=== PATIENT | female | born 1985 | race Caucasian/White ===

== ENCOUNTER 2017-06-05 16:30 | Emergency (ER) | payer BC, OTHER ==
[2017-06-05 17:15] VITALS: BP 111/63; PULSE 82; TEMP 98.1; BMI 29.8
[2017-06-05] MEDS ORDERED: ACETAMINOPHEN 325 MG TABLET (FP) PO ONE (18:12)
[2017-06-05] MEDS ORDERED: ACETAMINOPHEN 325 MG TABLET (FP) ONE (18:12)
--- NOTE | 2017-06-05 18:19 | PDOC ---
History of Present Illness - General Chief Complaint: Cold Symptoms Stated Complaint: FATIGUE Time Seen by Provider: 06/05/17 17:40 History Source: Patient Exam Limitations: No Limitations - History of Present Illness Initial Comments: CHIEF COMPLAINT: 31 y/o afebrile female c/o fever, chills, body aches, dry cough and sore throat x 3 days. HISTORY OF PRESENT ILLNESS: The patient never actually took a temp but states she started sweating and then was cold. She has been taking dayquil and nyquil for her symptoms. Her daughter had similar symptoms earlier in the week. Past History - Past Medical History Allergies/Adverse Reactions: Allergies Allergy/AdvReac Type Severity Reaction Status Date / Time codeine [Codeine] Allergy Intermediate Hives Verified 02/23/16 09:39 Penicillins Allergy Verified 02/23/16 09:39 Home Medications: Ambulatory Orders Levothyroxine [Synthroid -] 150 mcg PO DAILY 07/04/13 Albuterol Sulfate Inhaler - [Ventolin HFA Inhaler -] 1 - 2 inh PO Q4H #1 inhaler 06/05/17 Hydroxychloroquine So4 [Plaquenil -] 200 mg PO DAILY 06/05/17 Thyroid Disease: Yes - Reproductive History (#): 2 Para: 0 Therapeutic (s) & number: Yes (1) - Immunization History Immunization Up to Date: Yes - Suicide/Smoking/Psychosocial Hx Smoking Status: Yes Smoking History: Former smoker Have you smoked in the past 12 months: No Number of Cigarettes Smoked Daily: 0 If you are a former smoker, when did you quit?: 1997 Information on smoking cessation initiated: No Hx Alcohol Use: No Drug/Substance Use Hx: No Substance Use Type: None Review of Systems - Review of Systems Able to Perform ROS?: Yes Constitutional: Yes: Chills, Fever, Other (body aches) HEENTM: Yes: Nose Congestion, Throat Pain. No: Ear Pain, Ear Discharge, Nose Bleeding, Throat Swelling, Difficulty Swallowing Respiratory: Yes: Cough. No: Shortness of Breath, Wheezing, Productive cough Cardiac (ROS): No: Symptoms Reported ABD/GI: No: Symptoms Reported Neurological: No: Symptoms reported *Physical Exam - Vital Signs Last Vital Signs Temp Pulse Resp BP Pulse Ox 98.1 F 82 20 111/63 98 06/05/17 17:12 06/05/17 17:12 06/05/17 17:12 06/05/17 17:12 06/05/17 17:12 - Physical Exam Comments: Patient is a non toxic but ill appearing female in NAD or obvious discomfort. General Appearance: Yes: Nourished, Appropriately Dressed. No: Apparent Distress HEENT: positive: EOMI, DAWOOD, Pharyngeal Erythema (mild), Nasal Congestion. negative: Tonsillar Exudate, Tonsillar Erythema, Rhinorrhea, TM Bulging, TM Dull , TM Erythema Neck: negative: Lymphadenopathy (R), Lymphadenopathy (L) Respiratory/Chest: positive: Lungs Clear, Normal Breath Sounds. negative: Respiratory Distress, Accessory Muscle Use, Wheezing Cardiovascular: positive: Regular Rhythm, Regular Rate Medical Decision Making - Medical Decision Making A/P: 31 y/o female with URI/bronchitis. Will discharge to home with albuterol inhaler (she states she's had to use in the past) and supportive care instructions. gave patient tylenol in the ER. Suggested she return to the ER with any worsening or concerning symptoms. The patient verbalizes understanding of all instructions, has no further questions and is awaiting discharge. *DC/Admit/Observation/Transfer Diagnosis at time of Disposition: Acute viral bronchitis Upper respiratory infection Qualifiers: URI type: unspecified URI Qualified Code(s): J06.9 - Acute upper respiratory infection, unspecified - Discharge Dispostion Disposition: HOME Condition at time of disposition: Good - Prescriptions Prescriptions: Albuterol Sulfate Inhaler - [Ventolin HFA Inhaler -] 1 - 2 inh PO Q4H #1 inhaler - Referrals Referrals: Jj Macias [Primary Care Provider] - (call wednesday) - Patient Instructions Printed Discharge Instructions: DI for Acute Bronchitis, DI for Viral Upper Respiratory Infection -- Adult Additional Instructions: Discharge Instructions: -A prescription for an albuterol inhaler has been sent to your pharmacy -Please take tylenol and motrin for fever/body aches -IF you are taking tylenol, DO NOT TAKE dayquil and nyquil -Drink plenty of fluids -Get lots of rest -Return to the ER with any worsening or concerning symptoms. - Post Discharge Activity Forms/Work/School Notes: Back to Work
== END 2017-06-05 18:28 | disposition home or self-care (01) ==
LOC: JERFT 16:30
DX: J20.9 Acute bronchitis, unspecified (principal)
CPT/HCPCS: 99281-25

== ENCOUNTER 2018-11-27 09:37 | Emergency (ER) | payer BC, OTHER ==
[2018-11-27 09:43] VITALS: BMI 23.6
[2018-11-27] MEDS ORDERED: SODIUM CHLORIDE 1,000 ML IV STA (10:39)
[2018-11-27] MEDS ORDERED: predniSONE 20 MG TABLET (UD) PO ONE (10:40)
[2018-11-27] MEDS ORDERED: KETOROLAC TROMETHAMINE 15 MG/ML VIAL IVPUSH ONE (10:40)
[2018-11-27] MEDS ORDERED: predniSONE 10 MG TABLET (UD) ONE (11:33)
[2018-11-27] MEDS ORDERED: KETOROLAC TROMETHAMINE 15 MG/ML VIAL ONE (11:33)
[2018-11-27] MEDS ORDERED: predniSONE 20 MG TABLET (UD) ONE (11:33)
--- NOTE | 2018-11-27 11:40 | PDOC ---
Documentation entered by Ignacia Horton SCRIBE, acting as scribe for Ayanna De Paz MD. Ayanna De Paz MD: This documentation has been prepared by the Sol campbell Mackenzie, SCRIBE, under my direction and personally reviewed by me in its entirety. I confirm that the documentation accurately reflects all work , treatment, procedures, and medical decision making performed by me. History of Present Illness - General Chief Complaint: Palpitations Stated Complaint: PALPITATIONS / LUPUS Time Seen by Provider: 11/27/18 09:58 History Source: Patient Exam Limitations: No Limitations - History of Present Illness Initial Comments: The patient is a 33 year old female with a significant PMH of mixed connective tissue disease and Raynaud's disease who presents to the ED with 2 days of intermittent palpitations, generalized malaise and body aches/joint aches and her concern for a mixed connective tissue disease flare up. Patient states that 2 nights ago she started having palpitations and symptoms of a "flare up" (skin hurting, general malaise, nausea, and diarrhea). Patient states being unable to get out of bed and notes she has not eaten or drank much in the past 2 days. Patient states her "flare ups" are normally triggered by stress and she endorses being under some additional stress lately. Patient notes a specific pain centralized in her left shoulder. Patient also notes feeling short of breath which is usually not a symptom of her flare ups. Patient endorses taking aspirin and Motrin however she has experienced little to no relief. Patient notes she has been prescribed prednisone for previous flare ups. Car Supplier: Dr. Lanza ([facility]) Allergies: None Past Medical History: as documented in EMR/HPI Social history: Lives with family. No tobacco, ETOH or drug use. Surgical history: Meds: as documented in EMR 11/27/18 11:01 11/27/18 11:39 Past History - Past Medical History Allergies/Adverse Reactions: Allergies Allergy/AdvReac Type Severity Reaction Status Date / Time codeine [Codeine] Allergy Intermediate Hives Verified 11/27/18 09:43 Penicillins Allergy Verified 11/27/18 09:43 Home Medications: Ambulatory Orders Levothyroxine [Synthroid -] 125 mcg PO DAILY 07/04/13 Hydroxychloroquine So4 [Plaquenil -] 200 mg PO DAILY 06/05/17 Prednisone [Prednisone 50 MG TABLETS] 50 mg PO DAILY #4 tablet 11/27/18 COPD: No Thyroid Disease: Yes Other medical history: lupus, connective tissue disease - Reproductive History (#): 2 Para: 0 Therapeutic (s) & number: Yes (1) - Immunization History Immunization Up to Date: Yes - Suicide/Smoking/Psychosocial Hx Smoking Status: Yes Smoking History: Never smoked Have you smoked in the past 12 months: No Number of Cigarettes Smoked Daily: 0 If you are a former smoker, when did you quit?: 1997 Hx Alcohol Use: No Drug/Substance Use Hx: No Substance Use Type: None Review of Systems - Review of Systems Comments:: Constitutional: no fevers or chills. HEENT: no headache or dizziness. No congestion. No visual/hearing disturbances. CVS: (+)Palpitations. No cp or syncope. Resp:(+)SOB. No cough. Gastrointestinal: (+)Nausea, diarrhea. No vomiting. Genitourinary: no urinary sx, hematuria. MUSCULOSKELETAL: (+)General Malaise. (+)Left shoulder pain. SKIN: (+)Increased sensitivity. (+)Pain upon touch. No redness or skin changes, no discharge, no rash. No wounds. Hematologic: no easy bruising/bleeding. NEUROLOGIC: No headache, dizziness, LOC or altered mental status. No numbness or tingling. Psych:(+)Stress. no anxiety or depression Allergic/Immunologic: no allergies All other systems reviewed and negative, or as documented in HPI. 11/27/18 11:02 *Physical Exam - Vital Signs Last Vital Signs Temp Pulse Resp BP Pulse Ox 98.8 F 75 18 109/67 99 11/27/18 09:40 11/27/18 09:40 11/27/18 09:40 11/27/18 09:40 11/27/18 09:40 - Physical Exam Comments: General: Well appearing, awake and alert, NAD. HEENT: NCAT, PERRL, EOMI, clear conjunctiva, anicteric, moist mucus membranes, clear oropharynx, no oral lesions.. Neck: neck supple, FROM Resp: CTAB, normal and even respirations, no respiratory distress CVS: RRR, no murmurs, 2+ peripheral pulses throughout, no peripheral edema Abdomen: soft, NTND, no rebound or guarding. No CVAT. Back: nontender, normal inspection and ROM MSK: no edema, SARAVIA x4, ROM intact. No clubbing or cyanosis. normal bulk and tone. Extremities: no calf tenderness Neuro: alert, oriented appropriately; no focal neurologic deficits Skin: warm and well perfused, cap refill <2 sec, normal color 11/27/18 11:05 Heart Score/ECG Review #1 ECG reviewed & interpreted by me at: 10:25 General ECG Interpretation: Sinus Rhythm, Normal Rate, Normal Intervals Compared to previous ECG there are: Previous ECG unavail 11/27/18 13:46 EKG normal sinus rhythm at 64 bpm, no interval abnormalities, narrow QRS, ST and T wave segments and morphology normal. Nonspecific T wave abnormalities ED Treatment Course - LABORATORY CBC & Chemistry Diagram: 11/27/18 11:45 11/27/18 10:39 - RADIOLOGY Radiology Studies Ordered: Category Date Time Status CHEST PA & LAT [RAD] Stat Radiology 11/27/18 10:39 Ordered Medical Decision Making - Medical Decision Making 11/27/18 12:52 See HPI for details. Prior notes reviewed, including admissions, discharges and consultations. Vital signs reviewed, wnl. Vital Signs Temp Pulse Resp BP Pulse Ox 98.8 F 75 18 109/67 99 11/27/18 09:40 11/27/18 09:40 11/27/18 09:40 11/27/18 09:40 11/27/18 09:40 DDX chest pain, arrhythmia, interval abnormalities, autoimmune flare, electrolyte/metabolic derangements, anemia, dehydration, viral illness. laboratory results and imaging reviewed, basic labs and lytes wnl, notable for mild hypoK which was repleted. remainder of lytes wnl CXR_no acute chest pathology Cardiac panel_negative, reassuring, less likely cardiac; one trop sufficient, no cp or sob or acute tele events while on monitor. EKG normal sinus rhythm at 64 bpm, no interval abnormalities, narrow QRS, ST and T wave segments and morphology normal. Nonspecific T wave abnormalities Also PERC neg, no tachy or hypoxia, doubt PE or dissection or cardiovascular etiology/pathology no ocp use, no travel or leg edema/pain or s/s to suggest VTE. ED course -interventions: prednisone, toradol, IVF, potassium, reassess feels improved, VS wnl, ambulatory given NSAID with much relief, improved myalgias and arthralgias. pt comfortable with plan and has close f/u Rheum, Dr Fields, who she will call tmw prednisone x 4 more days, given first dose here, side effect profile reviewed Pt to be discharged in stable condition. Patient and family made aware of clinical impression, treatment recommendations and disposition plan, return precautions discussed (including but not limited to new or persistent/worsening symptoms, pain, fevers, or signs of infection, chest pain, respiratory distress , inability to tolerate oral intake, dehydration, syncope, or neurologic changes ). Follow up with PMD and/or rheum specialist as recommended, follow up information provided, take medications as instructed for duration of time. continue with supportive care, avoid triggers and precipitants. All questions answered to patient's satisfaction and expressed understanding and comfort with this. At the time of discharge, the patient is alert, clinically improved, tolerating po and verbalizes understanding of instructions, satisfied with the care received and felt comfortable with the plan. Patient does not suffer from an acute life-threatening medical condition at this time and is safe for outpatient follow-up. 11/27/18 13:44 11/27/18 13:47 *DC/Admit/Observation/Transfer Diagnosis at time of Disposition: Mixed connective tissue disease, Palpitations, Hypokalemia - Discharge Dispostion Disposition: HOME Condition at time of disposition: Improved Decision to Admit order: No - Prescriptions Prescriptions: Prednisone [Prednisone 50 MG TABLETS] 50 mg PO DAILY #4 tablet - Referrals Referrals: [facility] [place] [facility] [Provider Group] [facility] [Provider Group] Elena Pyle MD [Non Staff, Medical] - - Patient Instructions Printed Discharge Instructions: Autoimmune Disease and Women, High-Potassium Diet, DI for Palpitations Additional Instructions: 1) Please follow-up with your primary care doctor in the next 1-2 days. Please call tomorrow for for any urgent issues. you should call tomorrow with your business relationship manager Dr Obdulio Beaver for follow up of your mixed connective tissue disease flareup. 2) You were given a copy of the tests performed today. Please bring the results with you and review them with your primary care doctor. Your laboratory / imaging results were normal, except for mildly low potassium 3) If you have any worsening of symptoms or any other concerns please return to the ED immediately. Return if worsening symptoms including fevers, headache, vomiting, visual or hearing disturbances, abdominal pain, chest pain, shortness of breath, syncope, dehydration, inability to take things by mouth/vomiting, altered mental status, or worsening concerning symptoms. 4) Please continue taking your home medications as directed. your medications on discharge include prednisone x 4 more days, start tomorrow . side effects may include upset stomach, abdominal pain, vomiting, or diarrhea. do not drink alcohol with your medications. Please take IBUPROFEN (aka MOTRIN, ADVIL, ALEVE) 400 mg and/or ACETAMINOPHEN ( aka Tylenol) 650-975 mg every 6 hours, as needed, for pain. Please do not take these medications if you have a bleeding disorder, stomach or GI ulcer problems or liver disease. Stay well hydrated and rest adequately. - Post Discharge Activity
[2018-11-27 12:33] LABS: BASO % 0.4 % (0-2.0); EOS % 1.1 % (0-4.5); HEMATOCRIT 35.4 % (32.4-45.2); HEMOGLOBIN 11.4 GM/dL (10.7-15.3); LYMPH % 18.2 % (8-40); MCH 26.5 pg (25.7-33.7); MCHC 32.1 g/dl (32.0-36.0); MEAN CELL VOLUME 82.4 fl (80-96); MEAN PLT VOLUME 10.2 fl (7.5-11.1); MONO % 9.4 % (3.8-10.2); NEUT % 70.9 % (42.8-82.8); RDW 14.5 % (11.6-15.6); WHITE BLOOD COUNT 4.6 K/mm3 (4.0-10.0)
[2018-11-27 12:34] LABS: PLATELET COUNT 175 K/MM3 (134-434)
[2018-11-27 12:53] LABS: ALBUMIN 4.2 g/dl (3.4-5.0); ALK PHOS 65 U/L (45-117); ANION GAP 8 MMOL/L (8-16); BILIRUBIN,TOTAL 0.9 mg/dL (0.2-1); BLOOD UREA NITROGEN 8.6 mg/dL (7-18); CALCIUM 9.2 mg/dL (8.5-10.1); CHLORIDE 104 mmol/L (98-107); CO2 27 mmol/L (21-32); CREATININE 0.8 mg/dL (0.55-1.3); GLUCOSE,RANDOM 76 mg/dL (74-106); POTASSIUM 3.3 mmol/L (3.5-5.1); SGOT/AST 13 U/L (15-37); SGPT/ALT 14 U/L (13-61); SODIUM 139 mmol/L (136-145); TOT PROT 8.4 g/dl (6.4-8.2)
[2018-11-27] MEDS ORDERED: POTASSIUM CHLORIDE TABS 20 MEQ TABLET.ER (FP) PO ONE (12:57)
[2018-11-27 14:25] VITALS: BP 103/65; PULSE 62; TEMP 98
--- NOTE | 2018-11-28 11:14 | EKG ---
Test Reason : Blood Pressure : / mmHG Vent. Rate : 064 BPM Atrial Rate : 064 BPM P-R Int : 130 ms QRS Dur : 076 ms QT Int : 386 ms P-R-T Axes : 034 053 003 degrees QTc Int : 398 ms NORMAL SINUS RHYTHM NORMAL ECG WHEN COMPARED WITH ECG OF 13-APR-2016 21:32, NO SIGNIFICANT CHANGE WAS FOUND Confirmed by AMILCAR SARABIA MD ([id number]) on 11/28/2018 11:13:35 AM Referred By: Confirmed By:AMILCAR SARABIA MD
== END 2018-11-27 14:00 | disposition home or self-care (01) ==
LOC: JER 09:37
PROC: 3E0333Z Introduction of Anti-inflammatory into Peripheral Vein, Percutaneous Approach (ICD-10-PCS; principal; 2018-11-27)
PROC: 3E0337Z Introduction of Electrolytic and Water Balance Substance into Peripheral Vein, Percutaneous Approach (ICD-10-PCS; 2018-11-27)
DX: M35.9 Systemic involvement of connective tissue, unspecified (principal); I73.00 Raynaud's syndrome without gangrene; R00.2 Palpitations; E87.6 Hypokalemia; Z88.0 Allergy status to penicillin; Z88.5 Allergy status to narcotic agent
CPT/HCPCS: 36415; 71046-TC-FY; 80053; 82550; 83735; 84484; 84703; 85025; 93005; 93010; 99285-25; J7030

== ENCOUNTER 2019-03-07 19:02 | Emergency (ER) | payer SELFPAY ==
--- NOTE | 2019-03-07 19:05 | PDOC ---
Rapid Medical Evaluation Time Seen by Provider: 03/07/19 19:05 Medical Evaluation: Allergies Allergy/AdvReac Type Severity Reaction Status Date / Time codeine [Codeine] Allergy Intermediate Hives Verified 11/27/18 09:43 Penicillins Allergy Verified 11/27/18 09:43 03/07/19 19:05 I have performed a brief in-person evaluation of this patient. The patient presents with a chief complaint of: chest pain, palpitations Pertinent physical exam findings:stable and in NAD, non-focal I have ordered the following:labs, ekg The patient will proceed to the ED for further evaluation.
[2019-03-07 19:07] VITALS: BMI 21.6
--- NOTE | 2019-03-07 20:06 | PDOC ---
*Physical Exam - Vital Signs Last Vital Signs Temp Pulse Resp BP Pulse Ox 98 F 84 18 97/67 99 03/07/19 19:04 03/07/19 19:04 03/07/19 19:04 03/07/19 19:04 03/07/19 19:04 ED Treatment Course - LABORATORY CBC & Chemistry Diagram: 03/07/19 20:19 03/07/19 20:19 Medical Decision Making - Medical Decision Making 03/07/19 20:06 Patient seen by the advanced practice provider under my direct supervision. Ancillary testing reviewed as necessary. I agree with plan as outlined by the advanced practice provider. Discharge - Discharge Information Problems reviewed: Yes Clinical Impression/Diagnosis: Chest pain at rest - Follow up/Referral Referrals: Eduard Wilson MD [Primary Care Provider] - - Patient Discharge Instructions - Post Discharge Activity
--- NOTE | 2019-03-07 20:22 | PDOC ---
History of Present Illness - General Chief Complaint: Palpitations Stated Complaint: CHEST PAIN Time Seen by Provider: 03/07/19 19:05 History Source: Patient - History of Present Illness Initial Comments: 03/07/19 20:19 33 year old female c/o left sided chest pain with palpitation for one day with shortness of breath. patient reports slight nausea, decreased PO intake today. patient reports that she has been stressed at work. unsure of cause of chest pain. patient reports that she was seen bY her PCP, previous EKGs has been within the normal. patient reports that pain is not resolving despite aspirin use at home. 03/07/19 20:29 Past History - Past Medical History Allergies/Adverse Reactions: Allergies Allergy/AdvReac Type Severity Reaction Status Date / Time codeine [Codeine] Allergy Intermediate Hives Verified 03/07/19 19:07 Penicillins Allergy Verified 03/07/19 19:07 Home Medications: Ambulatory Orders Levothyroxine [Synthroid -] 125 mcg PO DAILY 07/04/13 Hydroxychloroquine So4 [Plaquenil -] 200 mg PO DAILY 06/05/17 Prednisone [Prednisone 50 MG TABLETS] 50 mg PO DAILY #4 tablet 11/27/18 COPD: No Thyroid Disease: Yes Other medical history: LUPUS, connective tissue disorder - Reproductive History (#): 2 Para: 0 Therapeutic (s) & number: Yes (1) - Immunization History Immunization Up to Date: Yes - Psycho Social/Smoking Cessation Hx Smoking Status: Yes Smoking History: Never smoked Have you smoked in the past 12 months: No Number of Cigarettes Smoked Daily: 0 If you are a former smoker, when did you quit?: 1997 Hx Alcohol Use: No Drug/Substance Use Hx: No Substance Use Type: None Review of Systems - Review of Systems Able to Perform ROS?: Yes Is the patient limited Kazakh proficient: No Constitutional: No: Symptoms Reported, See HPI, Chills, Diaphoresis, Fever, Loss of Appetite, Malaise, Night Sweats, Weakness, Weight Stable, Unintentional Wgt. Loss, Unexplained wgt Loss, Other Cardiac (ROS): Yes: Chest Pain, Palpitations ABD/GI: Yes: Nausea. No: Symptoms Reported, See HPI, Abdominal Distended, Abd. Pain w/ defecation, Blood Streaked Bowels, Constipated, Diarrhea, Difficulty Swallowing, Poor Appetite, Poor Fluid Intake, Rectal Bleeding, Vomiting, Indigestion, Abdominal cramping, Tarry Stools, Other *Physical Exam - Vital Signs Last Vital Signs Temp Pulse Resp BP Pulse Ox 98 F 84 18 97/67 99 03/07/19 19:04 03/07/19 19:04 03/07/19 19:04 03/07/19 19:04 03/07/19 19:04 - Physical Exam General Appearance: Yes: Appropriately Dressed Respiratory/Chest: positive: Lungs Clear, Normal Breath Sounds Cardiovascular: positive: Regular Rhythm, Regular Rate Gastrointestinal/Abdominal: positive: Normal Bowel Sounds, Soft Extremity: positive: Normal Capillary Refill, Normal Inspection, Normal Range of Motion Integumentary: positive: Dry, Warm Neurologic: positive: Fully Oriented, Alert, Normal Mood/Affect Heart Score/ECG Review - ECG Intrepretation Rhythm: Regular Rhythm Comment:: 03/07/19 20:35 NSR: 71 bpm T wave inversions in V3 03/07/19 20:36 No T wave inversions in V3 in Nov 2018 EKG ED Treatment Course - LABORATORY CBC & Chemistry Diagram: 03/07/19 20:19 03/07/19 20:19 - ADDITIONAL ORDERS Additional order review: Laboratory Results 03/07/19 03/07/19 03/07/19 20:19 20:19 20:19 PT with INR 14.20 H INR 1.20 H PTT (Actin FS) D-Dimer 357 Sodium Potassium Chloride Carbon Dioxide Anion Gap BUN Creatinine Est GFR (CKD-EPI)AfAm Est GFR (CKD-EPI)NonAf Random Glucose Calcium Total Bilirubin AST ALT Alkaline Phosphatase Creatine Kinase 425 H Creatine Kinase Index No Result Required. CK-MB (CK-2) < 1.0 Troponin I < 0.02 Total Protein Albumin 03/07/19 03/07/19 20:19 20:19 PT with INR INR PTT (Actin FS) 36.3 D-Dimer Sodium 138 Potassium 3.8 Chloride 104 Carbon Dioxide 30 Anion Gap 5 L BUN 8.7 Creatinine 0.8 Est GFR (CKD-EPI)AfAm 111.48 Est GFR (CKD-EPI)NonAf 96.19 Random Glucose 89 Calcium 9.5 Total Bilirubin 0.9 AST 30 ALT 18 Alkaline Phosphatase 66 Creatine Kinase Creatine Kinase Index CK-MB (CK-2) Troponin I Total Protein 7.8 Albumin 3.8 03/07/19 20:19 RBC 3.94 MCV 83.7 MCHC 32.2 RDW 16.8 H MPV 8.8 D Neutrophils % 52.9 D Lymphocytes % 33.3 D Monocytes % 12.5 H Eosinophils % 0.7 Basophils % 0.6 - RADIOLOGY Radiology Studies Ordered: Category Date Time Status CHEST PA & LAT [RAD] Stat Radiology 03/07/19 20:44 Taken - Medications Given in the ED: ED Medications Discontinued Medications Generic Name Dose Route Start Last Admin Trade Name Martha PRN Reason Stop Dose Admin Sodium Chloride 1,000 mls @ 1,000 mls/hr 03/07/19 20:28 03/07/19 22:12 Normal Saline - IV 03/07/19 21:27 1,000 mls/hr ASDIR STA Administration Ondansetron HCl 4 mg 03/07/19 21:03 03/07/19 22:13 Zofran Injection IVPUSH 03/07/19 21:04 4 mg ONCE ONE Administration Medical Decision Making - Medical Decision Making A: chest pain P: cbc cmp cardiac labs EKG chest xray: negative 03/07/19 21:51 Advised the patient that she should be admitted for chest pain protocol, Considering chest pain and EKG changes.. Patient reports that she is would like to follow-up with her PCP tomorrow instead. Patient reports that she has a small child at home. 03/07/19 21:53 03/07/19 22:20 03/07/19 23:00 Note: The patient insists on leaving the emergency dept and is signing out against medical advice. The patient understands the risks and complications that may result from the refusal of medical care and admission which includes and permanent disability. The patient has the mental capacity of understanding the risks of refusing care and is capable of making an informed decision. The patient was instructed to return to the emergency department should [] change [] mind regarding medical care or should [] condition worsen. The patient signed the Against Medical Advice form. Discharge - Discharge Information Problems reviewed: Yes Clinical Impression/Diagnosis: Chest pain at rest Disposition: AGAINST MEDICAL ADVICE - Follow up/Referral Referrals: Eduard Wilson MD [Primary Care Provider] - - Patient Discharge Instructions - Post Discharge Activity
[2019-03-07] MEDS ORDERED: SODIUM CHLORIDE 1,000 ML IV STA (20:28)
[2019-03-07 20:42] LABS: BASO % 0.6 % (0-2.0); EOS % 0.7 % (0-4.5); HEMATOCRIT 32.9 % (32.4-45.2); HEMOGLOBIN 10.6 GM/dL (10.7-15.3); LYMPH % 33.3 % (8-40); MCH 26.9 pg (25.7-33.7); MCHC 32.2 g/dl (32.0-36.0); MEAN CELL VOLUME 83.7 fl (80-96); MEAN PLT VOLUME 8.8 fl (7.5-11.1); MONO % 12.5 % (3.8-10.2); NEUT % 52.9 % (42.8-82.8); PLATELET COUNT 295 K/MM3 (134-434); RBC 3.94 M/mm3 (3.60-5.2); RDW 16.8 % (11.6-15.6); WHITE BLOOD COUNT 4.6 K/mm3 (4.0-10.0)
[2019-03-07] MEDS ORDERED: ONDANSETRON 4 MG/2 ML VIAL IVPUSH ONE (21:03)
[2019-03-07 21:07] LABS: ALBUMIN 3.8 g/dl (3.4-5.0); BILIRUBIN,TOTAL 0.9 mg/dL (0.2-1); BLOOD UREA NITROGEN 8.7 mg/dL (7-18); CALCIUM 9.5 mg/dL (8.5-10.1); CREATININE 0.8 mg/dL (0.55-1.3); POTASSIUM 3.8 mmol/L (3.5-5.1); TOT PROT 7.8 g/dl (6.4-8.2)
[2019-03-07 21:08] LABS: INR 1.2 (0.83-1.09); PROTHROMBIN TIME (PATIENT) 14.2 SEC (9.7-13.0)
[2019-03-07] MEDS ORDERED: ONDANSETRON 4 MG/2 ML VIAL ONE (21:30)
[2019-03-08 02:51] VITALS: BP 103/75; PULSE 74; TEMP 97.8
--- NOTE | 2019-03-08 10:34 | EKG ---
Test Reason : Blood Pressure : / mmHG Vent. Rate : 071 BPM Atrial Rate : 071 BPM P-R Int : 144 ms QRS Dur : 078 ms QT Int : 426 ms P-R-T Axes : 029 071 040 degrees QTc Int : 462 ms NORMAL SINUS RHYTHM NORMAL ECG WHEN COMPARED WITH ECG OF 27-NOV-2018 10:23, QT HAS LENGTHENED Confirmed by LUIS FELIPE LANDAVERDE, JOANNE ([id number]) on 03/08/2019 10:33:53 AM Referred By: Confirmed By:JOANNE BRISCOE MD
== END 2019-03-08 04:45 | disposition left against medical advice (07) ==
LOC: JER 19:02
PROC: 3E0337Z Introduction of Electrolytic and Water Balance Substance into Peripheral Vein, Percutaneous Approach (ICD-10-PCS; principal; 2019-03-07)
PROC: 3E033GC Introduction of Other Therapeutic Substance into Peripheral Vein, Percutaneous Approach (ICD-10-PCS; 2019-03-07)
DX: R07.9 Chest pain, unspecified (principal); E87.6 Hypokalemia; M35.1 Other overlap syndromes; M32.9 Systemic lupus erythematosus, unspecified; Z88.0 Allergy status to penicillin; Z88.6 Allergy status to analgesic agent
CPT/HCPCS: 36415; 71046-TC-FY; 80053; 82550; 82553; 84484; 85025; 85379; 85610; 85730; 93005; 93010; 99283-25; J7030